=== PATIENT | female | born 1990 | race Caucasian/White ===

== ENCOUNTER 2017-04-14 19:23 | Emergency (ER) | payer OTHER ==
[2017-04-14 19:30] VITALS: BP 125/73; BMI 38.5
--- NOTE | 2017-04-14 20:21 | DR.GENAD ---
HPI - PCP Primary Care Physician: Katie - Complaint/Symptoms Chief Complaint:: "The pains have been going on since last night. I have been trying to wait it out to see if they would go away, but they have been consistant. Then I went to the bathroom and wiped and the paper was covered with blood. I have a history of hemrroids so I think that one could have burst. " - Source History Provided: Patient - Mode of Arrival Mode of Arrival: Ambulatory - Timing Onset of Chief Complaint: 04/13/17 PMH - PMH Past Medical History: Yes Past Medical History: Asthma Past Surgical History: Yes Surgical History: - Family History History of Family Medical Conditions: Yes Family Medical History: Diabetes Mellitus, Cancer, [place], Hypertension - Social History Does patient currently use any type of tobacco product: Yes Have you used tobacco products in the last 12 months: Yes Type of Tobacco Use: Cigarettes How many years tobacco product used: 15 Alcohol Use: None Do you use any recreational Drugs:: No Lives With: Spouse Lives Where: Home - infectious screening In the last 2 months have you had wt loss of >10#?: NO Have you had fever, night sweats or hemotysis?: No Have you traveled outside the country in the last 6 months?: No Isolation: Standard PE - Vital Signs Vitals: Temperature 98.2 F Pulse Rate 100 Respiratory Rate 18 Blood Pressure 125/73 O2 Sat by Pulse Oximetry 98 - Discharge Plan Condition: Stable - Follow ups/Referrals Follow ups/Referrals: SABINE JERONIMO [Primary Care Provider] - 3 days - Instructions
[2017-04-14 20:35] LABS: BILIRUBIN,URINE NEGATIVE (NEGATIVE); BLOOD/HEMOGLOBIN,URINE 2+ (NEGATIVE); GLUCOSE, URINE NEGATIVE (NEGATIVE); KETONES,URINE NEGATIVE (NEGATIVE); LEUKOCYTE ESTERASE ,URINE 1+ (NEGATIVE); NITRITES,URINE NEGATIVE (NEGATIVE); PROTEIN,URINE 1+ (NEGATIVE); UROBILINOGEN,URINE 1+ (NORMAL)
[2017-04-14 20:43] LABS: AMORPHOUS SEDIMENT,UR 2+ /HPF (NEGATIVE); APPEARANCE,URINE HAZY (CLEAR); BACTERIA,URINE 2+ /HPF (NEGATIVE); CALCIUM OXALATE CRYSTALS,UR RARE /HPF (NEGATIVE); COLOR,URINE YELLOW (YELLOW); SQUAMOUS EPITHELIAL CELL,UR MODERATE /HPF (NEGATIVE)
== END 2017-04-14 21:10 | disposition home or self-care (01) ==
LOC: ER 19:38
DX: R10.84 Generalized abdominal pain (principal); Z3A.00 Weeks of gestation of pregnancy not specified
CPT/HCPCS: 81001; 99284

== ENCOUNTER → 2017-04-17 | Outpatient (CLI) | payer OTHER ==
[2017-04-14 19:30] VITALS: BP 125/73
[2017-04-17 15:36] LABS: BASOPHILS # (AUTO) 0.1 X10^3/uL (0.0-0.1); BASOPHILS % (AUTO) 0.3 % (0.2-1.0); EOSINOPHILS # (AUTO) 0.3 x10^3/uL (0.0-0.2); EOSINOPHILS % (AUTO) 1.7 % (0.9-2.9); HEMATOCRIT 32.8 % (36.0-47.0); HEMOGLOBIN 10.7 g/dL (12.0-16.0); LYMPHOCYTES # (AUTO) 2.3 X10^3/uL (1.3-2.9); LYMPHOCYTES % (AUTO) 15.4 % (21.0-51.0); MEAN CORPUSCULAR HEMOGLOBIN 25.7 pg (27.0-34.0); MEAN CORPUSCULAR HGB CONC 32.5 g/dL (33.0-35.0); MEAN CORPUSCULAR VOLUME 79.3 fL (80.0-100.0); MONOCYTES % (AUTO) 6.3 % (0.0-13.0); NEUTROPHILS # (AUTO) 11.5 x10^3/uL (2.2-4.8); NEUTROPHILS % (AUTO) 76.3 % (42.0-75.0); PLATELET COUNT 269 X10^3/uL (150.0-450.0); RED BLOOD COUNT 4.14 X10^6/uL (3.5-5.4); RED CELL DISTRIBUTION WIDTH 14.5 % (11.6-16.5); WHITE BLOOD COUNT 15.1 X10^3/uL (3.6-10.0)
[2017-04-17 16:18] LABS: PLATELET MORPHOLOGY COMMENT NORMAL (NORMAL)
== END ==
LOC: LAB 15:13
PROVIDERS: ATTEND Obstetrics & Gynecology Obstetrics
DX: E61.1 Iron deficiency (principal)
CPT/HCPCS: 36415; 82728; 85025

== ENCOUNTER 2017-04-28 20:55 | Emergency (ER) | payer OTHER ==
[2017-04-28 21:03] VITALS: BP 117/78; BMI 39.2
[2017-04-28 21:47] LABS: BILIRUBIN,URINE NEGATIVE (NEGATIVE); BLOOD/HEMOGLOBIN,URINE 3+ (NEGATIVE); GLUCOSE, URINE NEGATIVE (NEGATIVE); KETONES,URINE NEGATIVE (NEGATIVE); LEUKOCYTE ESTERASE ,URINE 2+ (NEGATIVE); NITRITES,URINE NEGATIVE (NEGATIVE); PROTEIN,URINE 2+ (NEGATIVE); UROBILINOGEN,URINE 2+ (NORMAL)
[2017-04-28 21:53] LABS: APPEARANCE,URINE SLIGHTLY HAZY (CLEAR); BACTERIA,URINE 2+ /HPF (NEGATIVE); COLOR,URINE YELLOW (YELLOW); MUCUS,URINE MANY /HPF (NEGATIVE); SQUAMOUS EPITHELIAL CELL,UR MODERATE /HPF (NEGATIVE)
[2017-04-28 22:20] LABS: BILIRUBIN,URINE NEGATIVE (NEGATIVE); BLOOD/HEMOGLOBIN,URINE 2+ (NEGATIVE); GLUCOSE, URINE NEGATIVE (NEGATIVE); KETONES,URINE NEGATIVE (NEGATIVE); LEUKOCYTE ESTERASE ,URINE 1+ (NEGATIVE); NITRITES,URINE NEGATIVE (NEGATIVE); PROTEIN,URINE 2+ (NEGATIVE); UROBILINOGEN,URINE 2+ (NORMAL)
[2017-04-28 22:32] LABS: APPEARANCE,URINE SLIGHTLY HAZY (CLEAR); BACTERIA,URINE 1+ /HPF (NEGATIVE); COLOR,URINE YELLOW (YELLOW); MUCUS,URINE FEW /HPF (NEGATIVE); SQUAMOUS EPITHELIAL CELL,UR RARE /HPF (NEGATIVE)
[2017-04-28] MEDS ORDERED: MACROBID CAP 100 MG EXT REL PO ONE ×2 (22:32→22:38)
== END 2017-04-28 22:40 | disposition home or self-care (01) ==
LOC: ER 21:06
DX: R10.84 Generalized abdominal pain (principal); Z3A.32 32 weeks gestation of pregnancy
CPT/HCPCS: 81001; 87086; 99284

== ENCOUNTER 2017-06-21 21:42 | Emergency (ER) | payer OTHER ==
[2017-06-21 21:49] VITALS: BP 128/87; BMI 39.1
[2017-06-21] MEDS ORDERED: ZOFRAN INJ 4 MG VIAL IM ONE (22:32)
[2017-06-21] MEDS ORDERED: TORADOL 60 MG VIAL IM ONE (22:32)
[2017-06-21] MEDS ORDERED: ZOFRAN INJ 4 MG VIAL ONE (22:35)
[2017-06-21] MEDS ORDERED: TORADOL 60 MG VIAL ONE (22:35)
--- NOTE | 2017-06-21 22:35 | DR.GENAD ---
HPI - PCP Primary Care Physician: MARIIA - HPI Comment HPI Comment: HISTORY BELOW. - Complaint/Symptoms Chief Complaint Doctors Comments: HEADACHE, BACK PAIN AT SITE WHERE EPIDURAL WAS ATTEMTED TIMES 6 DAYS. PATIENT IS 6 DAYS POST . NO FEVER, WOUND IS PARTIALY OPEN AND DRAINING. SLIGHT ODOR TO DRAINAGE. PATIENT IS NOT NURSING BABY. Chief Complaint:: "PAIN IN MID BACK FROM EPIDURAL FOR WHERE SHE STUCK ME 7-8 TIMES BEFORE GIVING UP. SENDS WARM FUZZY FEELING UP FROM THIS POINT TO MY HEAD. I FEEL LIKE I HAVE A MIGRAINE. DR. CHIANG DID THIS AND SHE WILL NEVER TOUCH ME AGAIN. SHE TOOK MY STERI STRIPS OFF TO SOON FROM C SECTION INCISION AND NOW I HAVE COMPLICATIONS FROM THAT." - Nurses notes reviewed Nurses Notes Review: Yes - Source History Provided: Patient - Mode of Arrival Mode of Arrival: Ambulatory - Timing Onset of Chief Complaint: 06/15/17 Came on: Suddenly - Duration Duration: Constant Duration: Days - Severity Severity: Moderate PMH - PMH Past Medical History: Yes Past Medical History: Asthma Past Surgical History: Yes Surgical History: - Family History History of Family Medical Conditions: Yes Family Medical History: Diabetes Mellitus, Cancer, [place], Hypertension - Social History Type of Tobacco Use: Cigarettes Alcohol Use: None Do you use any recreational Drugs:: No Lives Where: Home - infectious screening Have you traveled outside the country in the last 6 months?: No Isolation: Standard ROS - Review of Systems Constitutional: No Symptoms Reported. negative: Chills, Fever, Weakness, Fatigue Eyes: Photophobia. negative: Eye Pain, Discharge ENTM: negative: Ear Pain, Nose Discharge, Nose Congestion Respiratoy: negative: Productive Cough, Non-Productive Cough, Short of Breath, Wheezing, Hemoptysis Cardiovascular: No Symptoms Reported. negative: Chest Pain, Edema Gastrointestinal/Abdominal: Abdominal Pain (LOWER ABDOMEN. WOUND OPEN PARTIALLY. SOME DRAINAGE PRESENT.SOME ODOR NOTED.), Nausea Genitourinary: No Symptoms Reported. negative: Dysuria, Frequency, Hematuria Neurological: Headache. negative: Weakness, Dizziness Musculoskeletal: Other (SLIGHT BRUISING PRESENT AT AREA ON L SPINE WHERE EPIDURAL WAS ATTEMPTED.) Integumentary: Bruises Hematologic/Lymphatic: No Symptoms Reported Endocrine: No Symptoms Reported All Other Systems: Reviewed and Negative PE - Vital Signs Vitals: Temperature 99.3 F Pulse Rate 100 Respiratory Rate 16 Blood Pressure [Left Arm] 137/77 Blood Pressure 128/87 O2 Sat by Pulse Oximetry 98 - General Limitations: No Limitations General Appearance: Alert - Head Head Exam: Normal Inspection - Eyes Eye exam: Normal Appearance - ENT ENT Exam: Normal External Ear Exam External Ear Exam: Normal External Inspection TM/Canal Exam: Bilateral Normal Nose Exam: Normal Nose Exam Mouth Exam: Normal Inspection Throat Exam: Normal Inspection - Neck Neck Exam: Trachea Midline - Chest Chest Inspection: Symmetric Chest Wall Rise - Respiratory Respiratory Exam: Normal Lung Sounds Bilat Respiratory Exam: Bilateral Clear to Auscultation - Cardiovascular Cardiovascular Exam: Regular Rate, Normal Rhythm, Normal Heart Sounds - Abdominal Exam Abdominal Exam: Normal Bowel Sounds, Soft, Tenderness Abdominal Tenderness: RLQ, LLQ, Suprapubic ( WOUND PRESENT. PARTIALY OPEN WITH DRAINAGE.) - Extremities Extremities Exam: Normal Inspection - Back Back Exam: Other (SMALL BRUISE IN AREA OF ATEMTED EPIDURAL.) - Neurologic Neurological Exam: Alert, Oriented X3, CN II-XII Intact, Normal Gait, Reflexes Normal. negative: Motor Sensory Deficit - Psychiatric Psychiatric Exam: Anxious - Skin Skin Exam: Erythema MDM - Differential Diagnosis Differential Diagnosis: HEADACHE, WOUND INFECTION Course - Treatment Treatment: SEE ORDERS. IM MED FOR PAIN/IMPROVING. - Education/Counseling Education/Counseling: Patient, Education Educated On: Treatment, Diagnosis, Needs for Follow Up ROR - Labs Reviewed Laboratory Results Reviewed?: Yes Result Diagrams: 06/21/17 22:44 06/21/17 22:44 Laboratory: 06/21/17 23:42 Abdomen Gram Stain - Final WBC 10.6 X10^3/uL (3.6-10.0) H 06/21/17 22:44 RBC 3.55 X10^6/uL (3.5-5.4) 06/21/17 22:44 Hgb 10.1 g/dL (12.0-16.0) L 06/21/17 22:44 Hct 29.8 % (36.0-47.0) L 06/21/17 22:44 MCV 83.9 fL (80.0-100.0) 06/21/17 22:44 MCH 28.6 pg (27.0-34.0) 06/21/17 22:44 MCHC 34.1 g/dL (33.0-35.0) 06/21/17 22:44 RDW 18.4 % (11.6-16.5) H 06/21/17 22:44 Plt Count 344 X10^3/uL (150.0-450.0) 06/21/17 22:44 MPV 6.9 fL (7.4-11.0) L 06/21/17 22:44 Neut % 64.0 % (42.0-75.0) 06/21/17 22:44 Lymph % 22.7 % (21.0-51.0) 06/21/17 22:44 [place] % 9.7 % (0.0-13.0) 06/21/17 22:44 Eos % 3.0 % (0.9-2.9) H 06/21/17 22:44 Baso % 0.6 % (0.2-1.0) 06/21/17 22:44 Neut # 6.8 x10^3/uL (2.2-4.8) H 06/21/17 22:44 Lymph # 2.4 X10^3/uL (1.3-2.9) 06/21/17 22:44 [place] # 1.0 x10^3/uL (0.3-0.8) H 06/21/17 22:44 Eos # 0.3 x10^3/uL (0.0-0.2) H 06/21/17 22:44 Baso # 0.1 X10^3/uL (0.0-0.1) 06/21/17 22:44 Absolute Nucleated RBC 0.1 /100WBC 06/21/17 22:44 Sodium 140 mmol/L (136-145) 06/21/17 22:44 Corrected Sodium TNP 06/21/17 22:44 Potassium 4.1 mmol/L (3.5-5.1) 06/21/17 22:44 Chloride 105 mmol/L (98-107) 06/21/17 22:44 Carbon Dioxide 29.0 mmol/L (21-32) 06/21/17 22:44 BUN 13 mg/dL (7-18) 06/21/17 22:44 Creatinine 0.57 mg/dL (0.55-1.02) 06/21/17 22:44 Est GFR (MDRD) Af Amer > 60 (>60) 06/21/17 22:44 Est GFR (MDRD) Non-Af > 60 (>60) 06/21/17 22:44 Glucose 110 mg/dL (65-99) H 06/21/17 22:44 Calcium 9.0 mg/dL (8.5-10.1) 06/21/17 22:44 Corrected Calcium 10.1 mg/dL (8.5-10.1) 06/21/17 22:44 Total Bilirubin 0.20 mg/dL (0.2-1.0) 06/21/17 22:44 AST 21 Units/L (15-37) 06/21/17 22:44 ALT 30 Units/L (12-78) 06/21/17 22:44 Alkaline Phosphatase 112 Units/L (46-116) 06/21/17 22:44 Total Protein 7.0 g/dL (6.4-8.2) 06/21/17 22:44 Albumin 2.6 g/dL (3.4-5.0) L 06/21/17 22:44 Globulin 4.4 g/dL (2.5-4.5) 06/21/17 22:44 Albumin/Globulin Ratio 0.6 Ratio (1.1-2.1) L 06/21/17 22:44 - XRAY XRAY Interpreted by: Radiologist XRAY Findings: REPORT DISCUSS WITH PATIENT. - Diagnosis Discharge Problem: Wound dehiscence Headache Qualifiers: Headache type: unspecified Headache chronicity pattern: acute headache Intractability: intractable Qualified Code(s): R51 - Headache - Discharge Plan Disposition: 01 HOME, SELF-CARE Condition: Stable Prescriptions: Clindamycin HCl 300 mg PO Q6H #40 cap - Follow ups/Referrals Follow ups/Referrals: NFD,None [Primary Care Provider] - 2 days - Instructions Instructions: General Headache Without Cause, [id number], Wound Dehiscence, [id number] Additional Instructions: RETURN TO ED IF WORSE. SEE OB DR IN AM. CONTINUE MOTRIN PRN FOR HEADACHE.
[2017-06-21 22:53] LABS: BASOPHILS # (AUTO) 0.1 X10^3/uL (0.0-0.1); BASOPHILS % (AUTO) 0.6 % (0.2-1.0); EOSINOPHILS # (AUTO) 0.3 x10^3/uL (0.0-0.2); HEMATOCRIT 29.8 % (36.0-47.0); HEMOGLOBIN 10.1 g/dL (12.0-16.0); LYMPHOCYTES # (AUTO) 2.4 X10^3/uL (1.3-2.9); LYMPHOCYTES % (AUTO) 22.7 % (21.0-51.0); MEAN CORPUSCULAR HEMOGLOBIN 28.6 pg (27.0-34.0); MEAN CORPUSCULAR HGB CONC 34.1 g/dL (33.0-35.0); MEAN CORPUSCULAR VOLUME 83.9 fL (80.0-100.0); MEAN PLATELET VOLUME 6.9 fL (7.4-11.0); MONOCYTES % (AUTO) 9.7 % (0.0-13.0); NEUTROPHILS # (AUTO) 6.8 x10^3/uL (2.2-4.8); PLATELET COUNT 344 X10^3/uL (150.0-450.0); RED BLOOD COUNT 3.55 X10^6/uL (3.5-5.4); RED CELL DISTRIBUTION WIDTH 18.4 % (11.6-16.5); WHITE BLOOD COUNT 10.6 X10^3/uL (3.6-10.0)
--- NOTE | 2017-06-21 23:05 | CT ---
EXAM: CT BRAIN WITHOUT CONTRAST INDICATION: Headache COMPARISION: No Priors TECHNIQUE: Routine axial CT of the brain was performed without intravenous contrast. FINDINGS: The cerebral and cerebellar cortex are normal. The ventricular system is nondilated. No intra or ext ra-axial mass or hemorrhage. The mary-white junction is preserved. There is no evidence of subacute ischemic change. The basilar cisterns are clear. The skull is intact. The mastoid air cells are clear. IMPRESSION: Normal brain CT examination Reported By:
[2017-06-21 23:11] LABS: ALANINE AMINOTRANSFERASE 30 Units/L (12-78); ALBUMIN 2.6 g/dL (3.4-5.0); ALKALINE PHOSPHATASE 112 Units/L (46-116); ASPARTATE AMINO TRANSFERASE 21 Units/L (15-37); BLOOD UREA NITROGEN 13 mg/dL (7-18); CHLORIDE 105 mmol/L (98-107); COR CA(FOR HYPOALB) 10.1 mg/dL (8.5-10.1); CREATININE 0.57 mg/dL (0.55-1.02); GLUCOSE 110 mg/dL (65-99); SODIUM 140 mmol/L (136-145); eGFR BLACK RACES > 60 (>60); eGFR NON BLACK RACES > 60 (>60)
== END 2017-06-21 23:42 | disposition home or self-care (01) ==
LOC: ER 21:52
DX: R51 Headache (principal); T81.30XA Disruption of wound, unspecified, initial encounter
CPT/HCPCS: 36415; 70450; 80053; 85025; 87070; 87075; 87077; 87186; 87205; 96372; 99283; J1885; J2405

== ENCOUNTER 2018-02-15 14:48 | Emergency (ER) | payer SELFPAY ==
[2018-02-15 14:53] VITALS: BP 140/60; BMI 34.7
[2018-02-15] MEDS ORDERED: TETRACAINE HCL ONE (14:55)
[2018-02-15] MEDS ORDERED: FUL-GLO STRIP ONE (14:56)
--- NOTE | 2018-02-15 15:04 | DR.EYE ---
HPI - Time Seen Time seen: 14:55 - PCP Primary Care Physician: nfd - Complaint Chief Complaint Doctors Comments: Patient states that her baby scratched her left pupil on last night. Today the eye is painful Chief Complaint:: patient stated her 6 mth old was playing and scratched her left eye. stated it is very painful - Source History Provided: Patient - Mode of arrival Mode of Arrival: Ambulatory - Timing Onset of Chief Complaint: 02/15/18 PMH - PMH Past Medical History: Yes Past Medical History: Asthma Past Surgical History: Yes Surgical History: - Family History History of Family Medical Conditions: Yes Family Medical History: Diabetes Mellitus, Cancer, [place], Hypertension - Social History Does patient currently use any type of tobacco product: Yes Have you used tobacco products in the last 12 months: Yes Type of Tobacco Use: Cigarettes How many years tobacco product used: 15 Does any household member use tobacco: Yes Alcohol Use: None Do you use any recreational Drugs:: No Lives With: Family Lives Where: Home - infectious screening In the last 2 months have you had wt loss of >10#?: NO Have you had fever, night sweats or hemotysis?: No Have you traveled outside the country in the last 6 months?: No Isolation: Standard ROS - Review of Systems Eyes: Eye Pain (scratched by her baby), Blurred Vision ENTM: No Symptoms Reported Respiratoy: No Symptoms Reported Cardiovascular: No Symptoms Reported Gastrointestinal/Abdominal: No Symptoms Reported Genitourinary: No Symptoms Reported Neurological: No Symptoms Reported Musculoskeletal: No Symptoms Reported Integumentary: No Symptoms Reported Hematologic/Lymphatic: No Symptoms Reported Psychiatric: No Symptoms Reported PE - Vital Signs Vitals: Temperature 98.6 F Pulse Rate 77 Respiratory Rate 16 Blood Pressure [Left Arm] 137/77 Blood Pressure 140/60 O2 Sat by Pulse Oximetry 100 - General Limitations: No Limitations General Appearance: Alert, In No Apparent Distress - Head Head Exam: Normal Inspection, Atraumatic - Eyes Eye exam: Other (pupil is scratched vertically at the six o'clock position) Eyelids: Normal Inspection: Bilateral Pupils: Regular, Round: Bilateral Sclera/Conjunctival: Normal Inspection: Bilateral Anterior Chamber: Normal Inspection: Bilateral Posterior Chamber: Deferred: Bilateral - ENT ENT Exam: Normal Exam, Normal Oropharynx External Ear Exam: Normal External Inspection TM/Canal Exam: Bilateral Normal Nose Exam: Normal Nose Exam Mouth Exam: Normal Inspection Throat Exam: Normal Inspection - Neck Neck Exam: Normal Inspection - Chest Chest Inspection: Normal Inspection - Respiratory Respiratory Exam: Normal Lung Sounds Bilat Respiratory Exam: Bilateral Clear to Auscultation - Cardiovascular Cardiovascular Exam: Regular Rate, Normal Rhythm - Abdominal Exam Abdominal Exam: Normal Inspection, Normal Bowel Sounds Abdominal Tenderness: negative: RUQ, RLQ, LUQ, LLQ, Epigastrium, Suprapubic, Diffuse, Mild, Moderate, Severe, Other - Extremities Extremities Exam: Normal Inspection, Full ROM - Back Back Exam: Normal Inspection - Neurologic Neurological Exam: Alert, Oriented X3, CN II-XII Intact - Psychiatric Psychiatric Exam: Normal Affect - Skin Skin Exam: Warm, Dry, Intact Course - Treatment Treatment: Tetracaine applied flouroscene applied - Diagnosis Discharge Problem: Corneal abrasion Qualifiers: Encounter type: initial encounter Laterality: left Qualified Code(s): S05.02XA - Injury of conjunctiva and corneal abrasion without foreign body, left eye, initial encounter - Discharge Plan Condition: Stable - Follow ups/Referrals Follow ups/Referrals: NFD,None [Primary Care Provider] - 3 days - Instructions
== END 2018-02-15 15:20 | disposition home or self-care (01) ==
LOC: ER 15:00
DX: S05.02XA Injury of conjunctiva and corneal abrasion without foreign body, left eye, initial encounter (principal); Y33.XXXA Other specified events, undetermined intent, initial encounter; Y92.9 Unspecified place or not applicable
CPT/HCPCS: 99281; 99282